=== PATIENT | female | born 1970 | race Caucasian/White ===

== ENCOUNTER 2021-06-02 15:28 | Outpatient (CLI) | payer OTHER, SELFPAY ==
--- NOTE | 2021-06-02 15:30 | MM_ITS ---
WS: [id number] BILATERAL DIGITAL SCREENING MAMMOGRAPHY WITH CAD CLINICAL INFORMATION: SCREENING HISTORY: Screening mammogram. No current complaints. COMPARISON: TECHNIQUE: Bilateral CC and MLO views. FINDINGS: Scattered fibroglandular densities bilaterally. Stable 8 mm intramammary lymph node upper outer left breast. No suspicious focal mass, asymmetry, calcifications, or architectural distortion. No evidence of malignancy. MM/[place] [id number] IMPRESSION: BI-RADS: 2-Benign FOLLOW UP: 1 Year Follow-up Recommend return to annual screening mammography.
== END 2021-06-02 15:29 | disposition home or self-care (01) ==
LOC: RADSHAW 15:29
PROVIDERS: Visit Provider Internal Medicine
DX: Z12.31 Encounter for screening mammogram for malignant neoplasm of breast (principal)
CPT/HCPCS: 77067

== ENCOUNTER 2023-03-07 14:38 | Emergency (ER) | payer OTHER, SELFPAY ==
[2023-03-07 14:42] VITALS: BP 157/85; PULSE 94; RESP 14; TEMP 36.6; O2SAT 100; BMI 24.0
--- NOTE | 2023-03-07 15:13 | CT_ITS ---
WS: [id number] CT ABDOMEN PELVIS TECHNIQUE: Noncontrast CT of the abdomen and pelvis with coronal and sagittal reformatted images. CLINICAL INFORMATION: L flank/back pain COMPARISON: None. DLP: 477.[address] scans at [place] use at least one of these dose optimization techniques: automated e xposure control; mA and/or kV adjustment per patient size (includes targeted exams where dose is matc hed to clinical indication); or iterative reconstruction. FINDINGS: Enlarged heterogeneous fibroid uterus. This is previously seen on the 2020 pelvic ultrasound. This im pinges the bladder. LEFT UVJ calculus measuring approximately 4 mm along the inner surface of the UVJ likely passed into the bladder. Persistent LEFT ureterectasis with mild LEFT hydronephrosis. Inflammatory stranding and edema about the LEFT kidney and ureter. Additional adjacent tiny calculus measuring 2 mm at the UVJ i nsertion. No obstructing RIGHT renal or ureteral calculi. Bilateral nonobstructing calyceal tip calculi. Lung bases are well aerated. Noncontrast liver is normal. Small esophageal hiatal hernia. Air-fluid l evel in the stomach. Focal outpouching or Lobulated diverticulum at the gastric fundus. Area of lobul ation measures 3.6 x 3.9 CM. This can be further evaluated with endoscopy.Noncontrast pancreas is nor mal. Noncontrast gallbladder appears normal. Adrenal glands are normal. Normal caliber abdominal aort a. Normal sigmoid colon. Normal appendix in the RIGHT lower quadrant. Tiny fat-containing umbilical melodie ia. Disc space narrowing worse L5-S1. CT/CT kidney stone [id number] IMPRESSION: 1. Mild LEFT hydronephrosis with ureterectasis. 4 mm calculus along the inner LEFT UVJ likely recently passed into the bladder. Additional tiny amorphous acitlin culus at the UVJ insertion measuring 2 mm. 2. No hydronephrosis in RIGHT kidney. 3. Small bilateral nonobstructing calyceal tip calculi. 4. Normal appendix in the RIGHT lower quadrant. 5. Lobulated enlarged fibroid uterus. This can be followed up with pelvic ultr asound on an elective basis 6. Small esophageal hiatal hernia. 7. Focal outpouching or Lobulated diverticulum at the gastric fundus. Area of lobulation measures 3.6 x 3.9 CM. This can be further evaluated with endoscopy. Notified ROMELIA Cabrera at 03/07/2023 3:56 PM.
--- NOTE | 2023-03-07 15:14 | W.ED.BACK ---
HPI - Back Pain/Injury General: Chief Complaint: Back Pain/Injury Stated Complaint: possible kidney stone Time Seen by Provider: 03/07/23 14:54 Source: patient Mode of arrival: ambulatory Limitations: no limitations History of Present Illness: Patient is a nice 52-year-old female presents to ED today with a complaint of acute onset left flank pain beginning yesterday. Patient states she has a history of kidney stones and states her pain feels identical. She states pain starts in her left flank/lower back and radiates around into her left abdomen. She has noticed dark urine and believes this probably is hematuria. She is not having any dysuria. She has not been running fevers. She has had nausea and vomiting which she states is normal with previous stones. MD elicited complaint: back pain Pertinent past history: kidney stones Onset (ago): day(s) (yesterday) Timing: constant Severity: severe Similar Symptoms Previously: Yes Quality: sharp and stabbing Location: left flank and left lower back Radiation: abdomen Exacerbating factors: none Relieving factors: none Associated symptoms: Reports abdominal pain, hematuria, nausea and vomiting; Deny chills, change in bowel habits, dysuria, fatigue, fever(s) or urinary urgency Work related injury: No Review of Systems Const: Denies: fever(s), chills, body aches, fatigue or malaise Card: Denies: chest pain Resp: Denies: dyspnea GI: Reports: abdominal pain, nausea and vomiting; Denies: change in bowel habits : Reports: flank pain and hematuria; Denies: difficulty voiding, dysuria, urinary frequency, urinary urgency or pelvic pain Musc: Reports: back pain; Denies: neck pain, extremity pain, extremity swelling, joint pain or joint swelling Skin/Breast: Denies: rash Neuro: Denies: headache(s), numbness in extremities, weakness in extremities, sensory changes or dizziness Physical Exam Const: COMMON NORMALS: no acute distress, average body habitus, patient oriented x3, no limitations, healthy appearing, alert and well nourished Resp: COMMON NORMALS: normal respiratory effort and clear to auscultation bilaterally AUSCULTATION: clear to auscultation bilaterally Cardio: COMMON NORMALS: regular rate and regular rhythm RATE: regular rate RHYTHM: regular rhythm GI: COMMON NORMALS: Normal to inspection, nondistended, normoactive bowel sounds present, Soft to palpation, non-tender (L abdomen ), No hepatosplenomegaly present and no masses INSPECTION: Yes normal to inspection AUSCULTATION: Yes normoactive bowel sounds PALPATION: Yes Soft to palpation, Yes Tenderness to palpation present (GI) (L ), No Guarding due to palpation present (GI), No Rigid due to palpation and Yes No hepatosplenomegaly present : BLADDER/KIDNEY EXAM: Yes CVA tenderness on the left Back/Pelvis: COMMON NORMALS: thoracic and lumbar spine normal to inspection, no thoracic nor lumbar tenderness and thoraco-lumbar ROM normal GENERAL BACK: Yes CVA tenderness Extremity: COMMON NORMALS: normal to inspection GENERAL: Yes normal exam except as noted Neuro: IRVIN COMA SCALE: document GCS findings [place] coma scale eye opening: Spontaneous [place] coma scale verbal response: Orientated [place] coma scale motor response: Obey commands [place] coma scale total score: 15 COMMON NORMALS: patient oriented x3 SENSORIUM/ORIENTATION: Yes alert Skin: COMMON NORMALS: no rashes or lesions noted GENERAL SKIN EXAM: no rashes or lesions noted Course Vital Signs: Vital signs: Vital Signs Temperature 97.8 F 03/07/23 14:42 Pulse Rate 94 03/07/23 14:42 Respiratory Rate 14 03/07/23 14:42 Blood Pressure 157/85 03/07/23 14:42 Pulse Oximetry 100 03/07/23 14:42 Oxygen Delivery Me thod Room Air 03/07/23 14:42 MDM - Back Pain/Injury Medical Decision Making Patient was found to have a 4 mm calculus near her left UVJ likely recently passed into the bladder with an additional 2 mm calculus. Her vital signs are stable. Blood work is unremarkable. Her initial UA with gross evidence of contamination along with WBCs and leuks. Repeat urine analysis was performed with strict clean-catch instructions. This UA appears much improved without evidence of infection. Her pain was successfully treated here. Patient will be given a urine strainer and given pain/nausea meds as well as Flomax for home. Case management referral will be placed for urology follow-up. Return ED precautions given. Labs 03/07/23 15:48 03/07/23 15:23 Radiology Impressions Abdomen/Pelvis CT 03/07/23 15:13 IMPRESSION: 1. Mild LEFT hydronephrosis with ureterectasis. 4 mm calculus along the inner LEFT UVJ likely recently passed into the bladder. Additional tiny amorphous calculus at the UVJ insertion measuring 2 mm. 2. No hydronephrosis in RIGHT kidney. 3. Small bilateral nonobstructing calyceal tip calculi. 4. Normal appendix in the RIGHT lower quadrant. 5. Lobulated enlarged fibroid uterus. This can be followed up with pelvic ultrasound on an elective basis 6. Small esophageal hiatal hernia. 7. Focal outpouching or Lobulated diverticulum at the gastric fundus. Area of lobulation measures 3.6 x 3.9 CM. This can be further evaluated with endoscopy. Notified ROMELIA Cabrera at 03/07/2023 3:56 PM. Laboratory Results WBC 11.1 10^3/uL (4.0-10.0) H 03/07/23 15:48 Corrected WBC Cancelled 03/07/23 15:23 RBC 4.98 10^6/uL (4.1-5.3) 03/07/23 15:48 Hgb 14.7 g/dL (11.5-15.3) 03/07/23 15:48 Hct 45.3 % (37.0-47.0) 03/07/23 15:48 MCV 91.0 fl (81-99) 03/07/23 15:48 MCH 29.5 pg (28.0-34.0) 03/07/23 15:48 MCHC 32.5 g/dL (30.0-36.0) 03/07/23 15:48 RDW 12.8 % (12.1-15.1) 03/07/23 15:48 Plt Count 233 10^3/cmm (130-400) 03/07/23 15:48 MPV 10.1 fL (7.4-10.4) 03/07/23 15:48 Gran % Cancelled 03/07/23 15:23 Neut % (Auto) 87.5 % 03/07/23 15:48 Lymph % (Auto) 7.9 % 03/07/23 15:48 [place] % (Auto) 3.8 % 03/07/23 15:48 Eos % (Auto) 0.0 % 03/07/23 15:48 Baso % (Auto) 0.4 % 03/07/23 15:48 Neut # (Auto) 9.74 10^3/uL (1.8-7.7) H 03/07/23 15:48 Lymph # (Auto) 0.9 10^3/uL (0.8-4.8) 03/07/23 15:48 [place] # (Auto) 0.4 10^3/uL (0.2-0.9) 03/07/23 15:48 Eos # (Auto) 0.0 10^3/uL (0.0-0.8) 03/07/23 15:48 Baso # (Auto) 0.1 10^3/uL (0.0-0.1) 03/07/23 15:48 Absolute Gran (auto) Cancelled 03/07/23 15:23 Nucleated RBC % (auto) 0 % 03/07/23 15:48 Nucleated RBCs # 0.0 /100WBC 03/07/23 15:48 Sodium 138 mmol/L (136-145) 03/07/23 15:23 Potassium 4.8 mmol/L (3.5-5.1) 03/07/23 15:23 Chloride 97 mmol/L (98-107) L 03/07/23 15:23 Carbon Dioxide 27 mmol/L (22-29) 03/07/23 15:23 Anion Gap 18.8 (5-19) 03/07/23 15:23 BUN 17 mg/dL (6-20) 03/07/23 15:23 Creatinine 0.8 mg/dL (0.5-0.9) 03/07/23 15:23 GFR Calculation 75.0 mL/min (90-130) L 03/07/23 15:23 Glucose 126 mg/dL (65-115) H 03/07/23 15:23 Calculated Osmolality 289 mOsm/kg (285-295) 03/07/23 15:23 Calcium 10.8 mg/dL (8.5-10.5) H 03/07/23 15:23 Total Bilirubin 0.7 mg/dL (0.15-1.2) 03/07/23 15:23 AST 27 U/L (0-32) 03/07/23 15:23 ALT 32 U/L (0-33) 03/07/23 15:23 Alkaline Phosphatase 140 U/L (35-105) H 03/07/23 15:23 Total Protein 7.6 g/dL (6.6-8.7) 03/07/23 15:23 Albumin 5.1 g/dL (3.5-5.2) 03/07/23 15:23 Globulin 2.5 g/dL (1.3-4.6) 03/07/23 15:23 Urine Color Cancelled 03/07/23 16:07 Urine Color Yellow (Yellow) 03/07/23 16:07 Urine Appearance Cancelled 03/07/23 16:07 Urine Appearance Sl hazy (CLEAR) A 03/07/23 16:07 Urine pH 8 (5-7) H 03/07/23 16:07 Urine pH Cancelled 03/07/23 16:07 Ur Specific [place] 1.010 (1.005-1.030) 03/07/23 16:07 Ur Specific [place] Cancelled 03/07/23 16:07 Urine Protein Cancelled 03/07/23 16:07 Urine Protein Trace (Negative) 03/07/23 16:07 Urine Glucose (UA) Cancelled 03/07/23 16:07 Urine Glucose (UA) Norm (Normal) 03/07/23 16:07 Urine Ketones Cancelled 03/07/23 16:07 Urine Ketones Negative (Negative) 03/07/23 16:07 Urine Blood 3+ (Negative) H 03/07/23 16:07 Urine Blood Cancelled 03/07/23 16:07 Urine Nitrate Cancelled 03/07/23 16:07 Urine Nitrate Negative (Negative) 03/07/23 16:07 Urine Bilirubin Cancelled 03/07/23 16:07 Urine Bilirubin Neg (Negative) 03/07/23 16:07 Prot Sulfosalicylic Acd Cancelled 03/07/23 16:07 Prot Sulfosalicylic Acd Positive (Negative) 03/07/23 16:07 Urine Urobilinogen Cancelled 03/07/23 16:07 Urine Urobilinogen Norm mg/dL (Negative) 03/07/23 16:07 Ur Leukocyte Esterase Cancelled 03/07/23 16:07 Ur Leukocyte Esterase Trace (Negative) H 03/07/23 16:07 Urine RBC >100 /hpf (0-2) H 03/07/23 16:07 Urine WBC 0-4 /hpf (0-5) H 03/07/23 16:07 Ur Squamous Epith Cells 0-4 /hpf (0-5) H 03/07/23 16:07 Amorphous Sediment Not Reportable 03/07/23 16:07 Urine Bacteria Trace /hpf (NONE) 03/07/23 16:07 Discharge Plan Discharge Patient Disposition: Home Clinical Impression: Calculus of distal left ureter Condition: Stable Prescriptions: New hydrocodone-acetaminophen 5-325 mg tablet 1 tab PO Q6H PRN (Reason: pain) Qty: 14 0RF Flomax 0.4 mg capsule 0.4 mg PO DAILY Qty: 10 0RF ondansetron 4 mg tablet,disintegrating 4 mg PO Q8H PRN (Reason: nausea and vomiting) Qty: 14 0RF Discharge Orders: Discharge ED (Routine); Ordered 03/07/23 Ordered By: Karis Mancilla Referrals: Thang Potts DO [Primary Care Provider] - Patient Instructions: Ureteral Stones (ED), Opioid Safety, Pain Management Activity Restrictions/Additional Instructions: As discussed case management should contact you soon to set you up with your follow up urology appointment. You need to return to ED for worsening or uncontrollable pain, repetitive episodes of vomiting, fevers, generally feeling worse or unwell or any other concerns you may have. I hope you begin to feel better soon. Coding Level of Care Code ED Pouch Making Machine Operator for Farrah Chirinos
[2023-03-07] MEDS: ondansetron 2 mg/ML SDV 2 mL 4 MG IVP (15:39)
[2023-03-07] MEDS: ketorolac 60 mg/2 mL INJ 30 MG IVP (15:42)
[2023-03-07] MEDS: sodium chloride 0.9% 1,000 ML 999 ML IV (15:44)
[2023-03-07 15:47] LABS: Glucose Urine UA Norm (Normal); Protein Urine 1+ (Negative); Urine Appearance Cloudy (CLEAR); Urine Color Brown (Yellow); pH Urine 6.5 (5-7)
[2023-03-07 15:48] LABS: Add Urine Culture? No; Add Urine Microscopic? YES; Bacteria Urine 2+ /hpf; Bilirubin Urine Neg (Negative); Blood Urine 3+ (Negative); Ketones Urine 1+ (Negative); Leukocyte Esterase Urine 1+ (Negative); Nitrate Urine Positive (Negative); RBC Urine 25-40 /hpf (0-2); Squamous Epithelial Cell Urine 15-25 /hpf (0-5); Urobilinogen Urine Norm (Negative)
[2023-03-07 15:54] LABS: Basophils # 0.1 10^3/uL (0.0-0.1); Basophils % 0.4 %; Hematocrit 45.3 % (37.0-47.0); Hemoglobin 14.7 g/dL (11.5-15.3); Lymphocytes # 0.9 10^3/uL (0.8-4.8); Lymphocytes % 7.9 %; Mean Corpuscular HGB Conc 32.5 g/dL (30.0-36.0); Mean Corpuscular Hemoglobin 29.5 pg (28.0-34.0); Mean Platelet Volume 10.1 fL (7.4-10.4); Monocytes # 0.4 10^3/uL (0.2-0.9); Monocytes % 3.8 %; Neutrophils # 9.74 10^3/uL (1.8-7.7); Neutrophils % 87.5 %; Nucleated Red Blood Cells % 0 %; Platelet Count 233 10^3/cmm (130-400); Red Blood Count 4.98 10^6/uL (4.1-5.3); Red Cell Distribution Width 12.8 % (12.1-15.1); White Blood Count 11.1 10^3/uL (4.0-10.0)
[2023-03-07 15:56] LABS: Alanine Aminotransferase 32 U/L (0-33); Albumin Level 5.1 g/dL (3.5-5.2); Alkaline Phosphatase 140 U/L (35-105); Blood Urea Nitrogen 17 mg/dL (6-20); Calcium 10.8 mg/dL (8.5-10.5); Carbon Dioxide 27 mmol/L (22-29); Chloride 97 mmol/L (98-107); Creatinine Clr Calc Pharmacy 74.7475; Globulin 2.5 g/dL (1.3-4.6); Glucose 126 mg/dL (65-115); Osmolality Calculated 289 mOsm/kg (285-295); Sodium 138 mmol/L (136-145); Total Bilirubin 0.7 mg/dL (0.15-1.2); Total Protein 7.6 g/dL (6.6-8.7)
[2023-03-07 15:57] LABS: Anion Gap 18.8 (5-19); Aspartate Amino Transferase 27 U/L (0-32); Potassium 4.8 mmol/L (3.5-5.1)
[2023-03-07 17:02] LABS: Bilirubin Urine Neg (Negative); Blood Urine 3+ (Negative); Glucose Urine UA Norm (Normal); Ketones Urine Negative (Negative); Leukocyte Esterase Urine Trace (Negative); Nitrate Urine Negative (Negative); RBC Urine >100 /hpf (0-2); Sulfosalicylic Acid Urine Positive (Negative); Urine Appearance SL Hazy (CLEAR); Urine Color Yellow (Yellow); pH Urine 8 (5-7)
[2023-03-07 17:03] LABS: Add Urine Culture? Yes; Bacteria Urine TRACE /hpf; Squamous Epithelial Cell Urine 0-4 /hpf (0-5); WBC Urine 0-4 /hpf (0-5)
[2023-03-07 17:05] LABS: Protein Urine Trace (Negative); Urobilinogen Urine Norm (Negative)
--- NOTE | 2023-03-08 09:58 | DCPLANNER ---
manager mac had message to schedule a follow up appointment for patient with urology. manager mac spoke with patient to confirm where patient would like the referral sent to. Patient stated that she would like the referral sent to [facility]. manager mac faxed patients information to the [place] [facility], where it will be reviewed and clinic will call patient with appointment information.
== END 2023-03-07 17:20 | disposition home or self-care (01) ==
PROVIDERS: Emergency Provider Physician Assistant; PCP Internal Medicine
DX: N13.2 Hydronephrosis with renal and ureteral calculous obstruction (principal)
CPT/HCPCS: 74176; 80053; 81001; 85025; 87077; 87086; 87186; 96374; 96375; 99285; J1885; J2405; J7030

== ENCOUNTER 2023-06-13 07:54 | Outpatient (CLI) | payer OTHER, SELFPAY ==
--- NOTE | 2023-06-13 08:04 | MM_ITS ---
WS: [id number] BILATERAL SCREENING DIGITAL TOMOSYNTHESIS MAMMOGRAM WITH CAD HISTORY: SCREENING COMPARISON: 06/02/2021, 07/27/2019 Bilateral CC and MLO views with tomosynthesis and synthetic mammography submitted. Computer aided det ection analyzed. Breast composition: There are scattered areas of fibroglandular density. No suspicious masses, microc alcifications or architectural distortion. IMPRESSION: MM/[place] [id number] BI-RADS: 2-Benign FOLLOW UP: 1 Year Follow-up
== END 2023-06-13 07:55 | disposition home or self-care (01) ==
LOC: RAD 07:54
PROVIDERS: PCP Internal Medicine; Visit Provider Internal Medicine
DX: Z12.31 Encounter for screening mammogram for malignant neoplasm of breast (principal)
CPT/HCPCS: 77063; 77067